=== PATIENT | female | born 1965 | race Caucasian/White ===

== ENCOUNTER 2020-03-11 14:46 | Emergency (ER) | payer OTHER, SELFPAY ==
[2020-03-11 15:25] VITALS: BP 146/76; PULSE 96; RESP 20; TEMP 36.2; O2SAT 100
[2020-03-11 16:02] LABS: SARS-CoV-2 Ag Negative (Negative)
--- NOTE | 2020-03-11 16:19 | ED.EAR ---
HPI - Ear Problem General Chief complaint: Ear Stated complaint: sore throat,bump in neck,ear pain Source: patient Mode of arrival: ambulatory Limitations: no limitations History of Present Illness HPI Narrative: this is a 55-year-old female presents with right ear pain and pressure with a swollen tender right submandibular gland with a sore throat with no fever chills no cough no shortness of breath no audible wheezing no chest pain no chest congestion. Patient has been having symptoms over the last week or so and has intensified over the last couple of days. There is some sinus tenderness on pressure with postnasal drip. MD Complaint: ear pain Location: right ear Duration: constant Severity: moderate Relieving factors: NDAIDs Exacerbating factors: nothing Discharge from ear: Reports no Related Data Home Medications Medication Instructions Recorded Confirmed atorvastatin 20 mg PO HS 03/11/20 03/11/20 ertugliflozin [Steglatro] 5 mg PO DAILY 03/11/20 03/11/20 lisinopril 10 mg PO HS 03/11/20 03/11/20 metformin 1,000 mg PO HS 03/11/20 03/11/20 zolpidem [Ambien] 5 mg PO HS PRN 03/11/20 03/11/20 Allergies Allergy/AdvReac Type Severity Reaction Status Date / Time levofloxacin [From Levaquin] AdvReac Rash Verified 03/11/20 15:50 Penicillins AdvReac Rash Verified 03/11/20 15:50 Review of Systems Review of Systems: All systems reviewed & are unremarkable except as noted in HPI and below PMFSH Past Medical History Medical History Diabetes mellitus HLD (hyperlipidemia) Social History Social History Gender identity (if verbalized by the patient): Female Exam Const: General: no acute distress Orientation/consciousness: patient oriented x3 HENMT: Head: normal to inspection Ears: TM abnormal ( on the right dullness) Eyes: Conjunctivae: conjunctivae normal Pupils: Equal, round and reactive pupils present EOM: EOMs intact bilaterally Neck: Neck: normal visual inspection Other: right submandibular gland swelling and tenderness Chest: Chest palpation & inspection: normal inspection of the chest Resp: Effort & Inspection: normal respiratory effort Cardio: Rate: regular rate Rhythm: regular rhythm GI: GI Palp: Yes Soft to palpation : General: Yes no CVA tenderness Skin: General skin exam: normal color Neuro: General: patient oriented x3 Extrem: General: normal to inspection Psych: Mental Status: mental status grossly normal Course Course Emergency Course: reassessment patient, appears to be comfortable a reviewed negative COVID and negative strep test and and will be setting antibiotic for sinus in Vital Signs Vital signs: Vital Signs Temperature 36.2 C L 03/11/20 15:25 Pulse Rate 96 03/11/20 15:25 Respiratory Rate 20 03/11/20 15:25 Blood Pressure 146/76 H 03/11/20 15:25 Pulse Oximetry 100 03/11/20 15:25 Temperature 36.2 C L 03/11/20 15:25 Pulse Rate 96 03/11/20 15:25 Respiratory Rate 20 03/11/20 15:25 Blood Pressure 146/76 H 03/11/20 15:25 Pulse Oximetry 100 03/11/20 15:25 Medical Decision Making Vital Signs Vital Signs: Vital Signs Temperature 36.2 C L 03/11/20 15:25 Pulse Rate 96 03/11/20 15:25 Respiratory Rate 20 03/11/20 15:25 Blood Pressure 146/76 H 03/11/20 15:25 Pulse Oximetry 100 03/11/20 15:25 Temperature 36.2 C L 03/11/20 15:25 Pulse Rate 96 03/11/20 15:25 Respiratory Rate 20 03/11/20 15:25 Blood Pressure 146/76 H 03/11/20 15:25 Pulse Oximetry 100 03/11/20 15:25 Lab Data Labs: Lab Results 03/11/20 03/11/20 Range/Units 15:40 15:40 SARS-CoV-2 Ag (Rapid) Negative (Negative) Grp A Beta Strep Ag Negative Critical Care Time Critical Care Time Critical Care Time: No Discharge Plan Discharge Clinical Impression: Sinusitis Qualifiers: Sinusitis location: frontal C
[2020-03-11 16:36] VITALS: PULSE 95; RESP 20; O2SAT 98
== END 2020-03-11 16:37 | disposition home or self-care (01) ==
PROVIDERS: Emergency Provider Emergency Medicine; PCP Family Medicine
DX: J01.10 Acute frontal sinusitis, unspecified (principal)
CPT/HCPCS: 87081; 87426; 87880; 99283

== ENCOUNTER 2024-02-21 10:33 | Emergency (ER) | payer OTHER, SELFPAY ==
[2024-02-21 10:35] VITALS: BP 134/71; PULSE 66; RESP 16; TEMP 36.2; O2SAT 99
--- NOTE | 2024-02-21 10:41 | ED.EYEPROB ---
HPI - Eye Problem General Chief complaint: Eye Problems Stated complaint: eye irritation Time Seen by Provider: 02/21/24 10:40 Source: patient Mode of arrival: ambulatory Limitations: no limitations History of Present Illness HPI Narrative: this is a 59-year-old female with a history of diabetes presents with some irritation of the left, with redness and no foreign body sensation does have some yellow discharge and having the right eye affected as well. No fever chills no nasal congestion no sinus congestion no nausea vomiting abdominal pain no shortness of breath or chest pain. MD chief complaint: eye pain and eye redness Onset (ago): day(s) Onset description: gradual Duration: constant Location: both eyes Eye Symptoms: redness and discharge Related Data Home Medications Medication Instructions Recorded Confirmed atorvastatin 20 mg tablet 20 mg PO HS 03/11/20 02/21/24 ertugliflozin 5 mg tablet 5 mg PO DAILY 03/11/20 02/21/24 (Steglatro) lisinopril 10 mg tablet 10 mg PO HS 03/11/20 02/21/24 metformin 500 mg tablet,extended 1,000 mg PO HS 03/11/20 02/21/24 release 24 hr zolpidem 5 mg tablet (Ambien) 5 mg PO HS PRN Insomnia 03/11/20 02/21/24 canagliflozin 100 mg tablet 100 mg PO DAILY 02/21/24 02/21/24 (Invokana) dulaglutide 1.5 mg/0.5 mL 1.5 mg subcut WEEKLY 02/21/24 02/21/24 subcutaneous pen injector (Trulicity) Allergies Allergy/AdvReac Type Severity Reaction Status Date / Time levofloxacin [From Levaquin] AdvReac Rash Verified 02/21/24 10:37 Penicillins AdvReac Rash Verified 02/21/24 10:37 Review of Systems Review of Systems: All systems reviewed & are unremarkable except as noted in HPI and below PMFSH Past Medical History Medical History Diabetes mellitus HLD (hyperlipidemia) Social History Social History Gender identity (if verbalized by the patient): Female Exam Const: General: healthy appearing Nutritional Appearance: well nourished Orientation/consciousness: patient oriented x3 Limitations: no limitations Eyes: Conjunctivae: conjunctival abnormality Neck: Neck: normal visual inspection Chest: Chest palpation & inspection: normal inspection of the chest Resp: Effort & Inspection: normal respiratory effort Auscultation: clear to auscultation bilaterally Cardio: Rate: regular rate Rhythm: regular rhythm Course Course Emergency Course: Antibiotic eyedrops instilled into bilateral eyes and will send prescription to patient's pharmacy. Critical Care Time Critical Care Time Critical Care Time: No Discharge Plan Discharge Clinical Impression: Bacterial conjunctivitis Patient Disposition: Home, Self-Care Condition: Stable Instructions: Antibiotic Form, Conjunctivitis (ED) Additional Instructions: advised to take medication as prescribed and follow with primary if symptoms persist or worsen. Prescriptions: New neomycin-polymyxin B-dexameth [Maxitrol] 3.5mg/mL-10,000 unit/mL-0.1 % drops,suspension 1 drp EACH EYE Q6H 7 Days Qty: 5 0RF No Action atorvastatin 20 mg tablet 20 mg PO HS lisinopril 10 mg tablet 10 mg PO HS zolpidem [Ambien] 5 mg tablet 5 mg PO HS PRN (Reason: Insomnia) metformin 500 mg tablet extended release 24 hr 1,000 mg PO HS Steglatro 5 mg tablet 5 mg PO DAILY loratadine [Claritin] 10 mg tablet 10 mg PO DAILY Qty: 7 0RF Invokana 100 mg tablet 100 mg PO DAILY Trulicity 1.5 mg/0.5 mL pen injector 1.5 mg SUBCUT WEEKLY Follow-up/Referrals: Robert Sewell M.D. [Primary Care Provider] - Time of Disposition: 10:45
[2024-02-21] MEDS: NEOMYCIN/POLYMYXIN/HYDROCORT 7.5 ML EYE DROPS (*BKC) 1 DROP EACH EYE (10:44)
[2024-02-21 11:01] VITALS: BP 134/71; PULSE 66; RESP 16; TEMP 36.2; O2SAT 99
== END 2024-02-21 11:01 | disposition home or self-care (01) ==
LOC: CHSED 10:49
PROVIDERS: Emergency Provider Emergency Medicine; PCP Family Medicine
DX: H10.89 Other conjunctivitis (principal); E11.9 Type 2 diabetes mellitus without complications; E78.5 Hyperlipidemia, unspecified; Z79.84 Long term (current) use of oral hypoglycemic drugs
CPT/HCPCS: 99283; A9270